=== PATIENT | female | born 1970 | race Caucasian/White ===

== ENCOUNTER 2020-05-12 17:46 | Emergency (ER) | payer BC ==
[~2020-05-12] VITALS: Ht 165.1 cm; Wt 56.7 kg
--- NOTE | 2020-05-12 18:50 | NUR ---
PT BIB [facility] WITH A C/O HEADACHE SINCE 11AM. 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 PT WAS WORRIED AND DECIDED TO GO TO THE ER. PT IS AA&O X4. PT WAS TRIAGED AND TAKEN TO ER 4. PT WAS PLACED ON THE MONITOR AND CONTINUOUS PULSE OX.
[2020-05-12 18:51] LABS: BASOPHILS # (AUTO) 0.1 /CMM (0.0-0.2); BASOPHILS % (AUTO) 0.5 % (0.0-2.0); EOSINOPHILS % (AUTO) 0.8 % (0.0-6.0); HEMATOCRIT 44 % (33-45); HEMOGLOBIN 15.1 g/dL (11.5-14.8); LYMPHOCYTES # (AUTO) 1.3 /CMM (0.8-4.8); LYMPHOCYTES % (AUTO) 13.3 % (20.0-44.0); MEAN CORPUSCULAR HGB CONC 34 g/dl (31.0-36.0); MEAN CORPUSCULAR VOLUME 96 fL (82-100); MONOCYTES # (AUTO) 0.8 /CMM (0.1-1.30); MONOCYTES % (AUTO) 8.4 % (2.0-12.0); NEUTROPHILS # (AUTO) 7.4 /CMM (1.8-8.9); PLATELET COUNT (AUTO) 254 /CMM (150-450); RED BLOOD CELL COUNT(AUTO) 4.63 MIL/uL (4.0-5.2); WHITE BLOOD COUNT (AUTO) 9.6 K/uL (4.3-11.0)
--- NOTE | 2020-05-12 18:52 | NUR ---
PT REC'D MEDICATION ORDERED.
[2020-05-12 19:00] LABS: CALCIUM, SERUM 8.9 mg/dL (8.5-10.1); CREATININE 1.1 mg/dL (0.6-1.3); POTASSIUM 4.4 mmol/L (3.5-5.1)
[2020-05-12] MEDS ORDERED: IV NS 0.9% 1,000 ML IV ONE (19:00)
--- NOTE | 2020-05-12 19:20 | NUR ---
PT C/O FEELING NAUSEATED. MD NOTIFIED. NEW ORDERS GIVEN.
[2020-05-12] MEDS ORDERED: METOCLOPRAMIDE HCL 10 MG/2 ML VIAL IV ONE (19:30)
[2020-05-12] MEDS ORDERED: KETOROLAC TROMETHAMINE INJ 30 MG/ML VIAL IV ONE (19:30)
[2020-05-12] MEDS ORDERED: KETOROLAC TROMETHAMINE 15 MG/ML VIAL ONE (19:39)
[2020-05-12] MEDS ORDERED: SUMATRIPTAN SUCCINATE 25 MG TABLET ONE (20:28)
[2020-05-12] MEDS ORDERED: MORPHINE SULFATE INJ 2 MG/ML DISP.SYRIN ONE (20:28)
[2020-05-12] MEDS ORDERED: ONDANSETRON HCL/PF 4 MG/2 ML VIAL ONE (20:28)
[2020-05-12] MEDS ORDERED: ONDANSETRON HCL/PF - ER 4 MG/2 ML VIAL IV ONE (20:30)
[2020-05-12] MEDS ORDERED: SUMATRIPTAN SUCCINATE 25 MG TABLET PO ONE (20:30)
[2020-05-12] MEDS ORDERED: MORPHINE SULFATE INJ 2 MG/ML DISP.SYRIN IV ONE (20:30)
--- NOTE | 2020-05-12 20:37 | NUR ---
PT REC'D MEDICATION ORDERED.
--- NOTE | 2020-05-12 21:35 | NUR ---
IV removed. Catheter intact and site benign. Pressure and 4x4 applied to site. No bleeding noted. Patient discharged to home in stable condition. Written and verbal after care instructions given. Patient verbalizes understanding of instruction. VSS. PT AMBULATED OUT TO THE LOBBY WITH A STEADY GAIT. PT'S , MAXIME, WAS IN THE LOBBY AND WAS TAKING THE PT HOME. PT WAS INSTRUCTED NOT TO DRIVE.
[2020-05-12 21:41] VITALS: BP 119/78
== END 2020-05-12 21:42 | disposition home or self-care (01) ==
LOC: ER 17:51
DX: G43.909 Migraine, unspecified, not intractable, without status migrainosus (principal); E03.9 Hypothyroidism, unspecified; I10 Essential (primary) hypertension; Z41.1 Encounter for cosmetic surgery
CPT/HCPCS: 36415; 70450; 80048; 84702; 85025; 96374; 96375; 99284; J1885; J2270; J2405; J2765; J7030